=== PATIENT | male | born 2000 | race American Indian/Alaskan Native ===

== ENCOUNTER 2020-10-15 16:36 | Emergency (ER) | payer SELFPAY ==
[2020-10-15 17:40] VITALS: BP 131/80
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
[2020-10-16] MEDS ORDERED: IBUPROFEN 600 MG TAB PO ONE (00:51)
[2020-10-16] MEDS ORDERED: HYDROcodone/ACETAMINOPHEN 7.5-325MG TAB PO ONE (00:51)
[2020-10-16] MEDS ORDERED: ONDANSETRON 4 MG ODT TAB PO ONE (00:51)
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
== END 2020-10-16 01:38 | disposition home or self-care (01) ==
LOC: ED 16:36
DX: S93.401A Sprain of unspecified ligament of right ankle, initial encounter (principal); S93.601A Unspecified sprain of right foot, initial encounter; S43.402A Unspecified sprain of left shoulder joint, initial encounter; F17.200 Nicotine dependence, unspecified, uncomplicated; I10 Essential (primary) hypertension; Z79.899 Other long term (current) drug therapy; V49.49XA Driver injured in collision with other motor vehicles in traffic accident, initial encounter; Y92.410 Unspecified street and highway as the place of occurrence of the external cause; Y93.89 Activity, other specified; Y99.8 Other external cause status
CPT/HCPCS: Q0162